=== PATIENT | female | born 1995 | race Caucasian/White ===

== ENCOUNTER 2024-11-09 14:42 | Outpatient (CLI) | payer BC, SELFPAY | END 2024-11-09 14:43 | disposition home or self-care (01) | PROVIDERS: Visit Provider Family Medicine | DX: F41.9 Anxiety disorder, unspecified (principal) | CPT/HCPCS: A0425; A0427 ==

== ENCOUNTER 2024-11-09 15:38 | Emergency (ER) | payer BC, SELFPAY ==
[2024-11-09 15:42] VITALS: BP 102/71; PULSE 92; RESP 12; TEMP 36.5; O2SAT 100; BMI 33.3
[2024-11-09] MEDS: PROPRANOLOL 20 MG TABLET 10 MG PO ×2 (16:20→16:56)
[2024-11-09 16:28] VITALS: BP 106/68; PULSE 98; RESP 22; O2SAT 98
--- NOTE | 2024-11-09 16:29 | ED.ANXIETY ---
HPI - Anxiety General Date Seen: 11/09/24 Chief Complaint: Anxiety Stated Complaint: Panic Attack Time Seen by Provider: 11/09/24 15:55 Source: patient Mode of arrival: ambulatory Limitations: no limitations History of Present Illness HPI narrative: Patient is a 28-year-old female presenting to the emergency department for a panic attack. She has a history of anxiety panic attacks and states she typically takes propanolol when she has a panic attack. Did not have any with her at the time when she began having panic attack. States she was on walk for a date and was feeling very nervous. She states when her heart rates spike she will start having a panic attack. This occurred and she tried to call her pharmacy to refill her panel but she states panic attack was too much and she was unable to move. To this EMS was called. When they arrived she was hyperventilating and stated her fingers were getting numb and she was having some nausea. She did vomit once. She is not feeling better so was given 2 mg diazepam. After this the anxiety seems to have improved quite a bit. She states she still feels anxious but no longer feels nauseated and the tingling sensation in her fingers is almost completely gone. Denies headache, vision changes, chest pain, shortness of breath, weakness, abdominal pain. States this felt like previous panic attacks. Related Data Home Medications ?Medication ?Instructions ?Recorded ?Confirmed propranolol .ROUTE 11/09/24 venlafaxine 75 mg tablet 225 mg PO DAILY 11/09/24 11/09/24 Allergies Allergy/AdvReac Type Severity Reaction Status Date / Time sulfamethoxazole (From Allergy Unknown Verified 11/09/24 15:45 Bactrim) trimethoprim (From Bactrim) Allergy Unknown Verified 11/09/24 15:45 Review of Systems Status of ROS: Reports: 10 or more systems reviewed and unremarkable except as noted in History and below Exam Narrative: Exam Narrative: Const: Well-nourished, Well-developed, in mild distress Eyes: PERRL, no conjunctival injection, and symmetrical lids HENT: Atraumatic external nose and ears. Moist mucous membranes. Neck: Symmetric, trachea midline, No thyromegaly. CVS: RRR, No murmurs or gallops. Peripheral pulses 2+ and equal in all extremities RESP: Unlabored respiratory effort. Clear to auscultation bilaterally. GI: Nontender/Nondistended, No rebound or guarding. MSK:Extremities w/o deformity, Normal Active ROM Skin: Warm, Dry. No rashes or lesions. Neuro: Normal Muscle tone, No focal neurological deficits. Psych: Awake, Alert, & Oriented x3. Appropriate mood and affect. Const: Vital Signs, click to edit/add: Vital Signs - 24 hr 11/09/24 15:42 11/09/24 16:28 11/09/24 17:20 Temperature 97.7 F Pulse Rate [Pulse Oximeter] 92 98 75 Respiratory Rate 12 22 18 Blood Pressure [Le ft Upper Arm] 102/71 106/68 125/75 Pulse Oximetry 100 98 98 Oxygen Delivery Me thod Room Air Room Air Course Vital Signs Vital signs: Initial Vital Signs Temperature 97.7 F 11/09/24 15:42 Temperature Source Temporal Artery Scan 11/09/24 15:42 Pulse Rate 92 11/09/24 15:42 Respiratory Rate 12 11/09/24 15:42 Blood Pressure 102/71 11/09/24 15:42 Blood Pressure Mean 81 11/09/24 15:42 Blood Pressure Position Supine 11/09/24 15:42 Pulse Oximetry 100 11/09/24 15:42 Oxygen Delivery Method Room Air 11/09/24 15:42 Vital Signs Temperature 97.7 F 11/09/24 15:42 Pulse Rate 92 11/09/24 15:42 Respiratory Rate 12 11/09/24 15:42 Blood Pressure 102/71 11/09/24 15:42 Pulse Oximetry 100 11/09/24 15:42 Oxygen Delivery Method Room Air 11/09/24 15:42 Temperature 97.7 F 11/09/24 15:42 Pulse Rate 75 11/09/24 17:20 Respiratory Rate 18 11/09/24 17:20 Blood Pressure 125/75 11/09/24 17:20 Pulse Oximetry 98 11/09/24 17:20 Oxygen Delivery Method Room Air 11/09/24 16:28 Medications Administered Medications: Discontinued Medications Generic Name Dose Route Start Last Admin Trade Name Freq PRN Reason Stop Dose Admin Propranolol HCl 10 mg 11/09/24 16:05 11/09/24 16:20 Propranolol 20 Mg Tablet PO 11/09/24 16:06 10 mg ONCE ONE Administration Propranolol HCl 10 mg 11/09/24 16:48 11/09/24 16:56 Propranolol 20 Mg Tablet PO 11/09/24 16:49 10 mg ONCE ONE Administration MDM - Anxiety MDM Narrative Medical decision making narrative: Patient is a 28-year-old female presenting for panic attack. Appears to be doing well at this time. I do not believe further lab workup or imaging is necessary at this time as symptoms are consistent with previous panic attacks. I will try and give her a dose of her propanolol as she is still having some anxiety to see if that helps. After the propranolol she still feeling anxious in the dose was given. At this point there is not much further for us to do for her panic attack here in the emergency department. I believe she will do better at home. She will be discharged. I offered a prescription for the propanolol but she states she already has 1. Discharge Plan Discharge Clinical Impression: Panic disorder Patient Disposition: Home, Self-Care Condition: Stable Instructions: Panic Attack (ED) Additional Instructions: Continue to use your per panel at home. Recommend following up with your primary care provider. Prescriptions: No Action propranolol .ROUTE venlafaxine 75 mg tablet 225 mg PO DAILY Follow Up/Referrals: Provider,Not a Local [Primary Care Provider, Family Practice] Stand Alone Forms: [facility] Info Instructions
[2024-11-09 17:20] VITALS: BP 125/75; PULSE 75; RESP 18; O2SAT 98
--- OUTSIDE RECORDS SUMMARY | 2024-11-09 17:20 | XMS_ITS | Clinical Summary ---
Author Organization [facility] Address [address] [address] Phone Care Team Providers Care Gift Wrapper Name Role Phone Unavailable Primary Care Provider Unavailabl e Allergies Active Allergy Reactions Criticality Noted Date Comments Sulfamethoxazole W-Trimethoprim Hives 12/26 Medications citalopram (CELEXA) 20 MG tablet Take 20 mg by mouth one time a day. Active desogestrel-ethi nyl estradiol (VIORELE) 0.15-0.02/0.01 MG (13/09) oral tablet Take 1 Tab by mouth one time a day. 3 Package 4 03/03/2019 Active citalopram (CELEXA) 40 MG tablet Take 1 Tab by mouth one time a day. 60 Tab 03/03/2019 Active hydrOXYzine HCl (ATARAX) 25 MG tablet Take 1 Tab by mouth three times a day as needed for Itching. 30 Tab 03/03/2019 Active Active Problems Problem Noted Date Diagnosed Date Depression 03/03/2019 Anxiety 03/03/2019 Immunizations Immunization Administration Dates Next Due DPT <7 years (Historic) 01/31/1999,06/25/1998, DTaP <7 years 01/03/2003 Hepatitis A, Ped/Adolescent 2 dose 10/31/2007, Hepatitis B, Pediatric/adolescent 06/25/1998,,01/02/1998 Hib (Hib-TITER) 01/31/1999, 9,04/23/1998,02/19 Human Papilloma Virus Quadrivalent 01/23/2015 IPV 01/03/2003, 9,04/23/1998,02/19 Influenza Live Intranasal Qu ad (Flumist) 01/23/2015 Influenza Quad Preservative Free 12/11/2016 Influenza Trivalent Preservative Free 12/18/2008 Influenza Vaccine (6 months - 64 Years) Quad PF Syringe (Flu Clinic) 03/03/2019(Deferred: Invalid Dose - [place] - see patient letter July 2019; scope of potential impact to this patient only includes flu vaccine(s).) MMR 01/03/2003,01/31/1999 Meningococcal B Vaccine, Ful ly Recombinant 12/08/2017 Pneumococcal Conjugate, (Prevnar)7-valent 07/07/2000 Tdap (7 years and older) 12/18/2009 Varicella (Varivax) 12/17/2006,07/07/2000 meningococcal MCV4P (Menactra) 01/23/2015 Medical History Medical History Date Comments Depression Anxiety Family History Medical History Relation Comments Hypertension Father Hypertension Maternal Grandfather Cardiovascular Disease Maternal Grandmother pace makers Diabetes Maternal Grandmother Hypertension Mother Cardiovascular Disease Paternal Grandmother Cancer Negative Family Hx Stroke Negative Family Hx Relation Status Comments Father Alive Maternal Grandfather Maternal Grandmother Mother Alive Paternal Grandmother Social History Tobacco Use Types Packs/Day Years Used Date Smoking Tobacco: Never Smokeless Tobacco: Never Alcohol Use Standard Drinks/Week Comments Yes 0 (1 standard drink = 0.6 oz pur e alcohol) AUDIT-C Answer Date Recorded Frequency of Alcohol Consumption Monthly or less 04/09/2019 Average Number of Drinks Not asked 019 Frequency of Binge Drinking Not on file 03/26 PHQ-2 Answer Date Recorded PHQ-2 Score 0 02/14/2018 Comments No Sex and Gender Information Value Date Recorded Sex Assigned at Not on file Legal Sex Female 3:56 PM CDT Gender Identity Not on file Sexual Orientation Not on file Obstetrics History Last Filed Vital Signs Vital Sign Reading Time Taken Comments Blood Pressure 102/65 04/09/2019 3:32 AM [employer] Pulse 80 04/09/2019 4:56 AM [employer] Temperature 36.9 C (98.4 F) 04/09/2019 4:56 AM [employer] Respiratory Rate 15 04/09/2019 4:56 AM [employer] Oxygen Saturation 99% 04/09/2019 4:56 AM [employer] Inhaled Oxygen Concentration - - Weight 77.1 kg (170 lb) 04/09/2019 12:28 AM [employer] Height 162.6 cm (5' 4) 04/09/2019 12:28 AM [employer] Body Mass Index 29.18 04/09/2019 12:28 AM [employer] Plan of Treatment Health Maintenance Due Date Last Done Comments Cervical Cancer Screening 1997 Last pap w/ HPV Testing 1997 Last pap w/o HPV Testing 1997 HPV Vaccine (Standing Order) (2 - 3-dose series) 02/20/2015 01/23/2015 TETANUS (Standing Order) 12/19/2019 010, 01/03/2003, 01/31/1999, Additional history exists Hepatitis B Vaccine (Standing Order) Completed 06/25/1998, 02/19/1998, 01/02/1998 Pneumococcal/PCV20 Vaccine: Pediatrics (2-5 yrs) and At-Risk Patients (6-49 yrs) (Standing Order) Aged Out 07/07/2000 No longer eligible based on patient's age to complete this topic PERTUSSIS (Standing Order) Completed 12/18, 01/03/2003, 01/31/1999, Additional history exists Insurance Surround App [facility]
== END 2024-11-09 18:16 | disposition home or self-care (01) ==
PROVIDERS: Emergency Provider Student in an Organized Health Care Education/Training Program
DX: F41.0 Panic disorder [episodic paroxysmal anxiety] (principal)
CPT/HCPCS: 94761; 99283; A9270